=== PATIENT | female | born 1960 | race African-American/Black ===

== ENCOUNTER 2020-10-16 08:00 | Emergency (ER) | payer BC, OTHER ==
[~2020-10-16] VITALS: Ht 167.6 cm; Wt 93.0 kg
[2020-10-16 08:06] VITALS: BP 156/81
[2020-10-16] MEDS ORDERED: ACETAMINOPHEN 325MG TABLET PO ONE (08:30)
[2020-10-16 10:18] LABS: CHLORIDE 106 mEq/L (98-107)
[2020-10-16 10:24] LABS: BASOPHILS % 0.8 % (0.0-2.0); EOSINOPHILS % 1.3 % (0.0-5.0); HEMATOCRIT. 33.7 % (36.0-48.0); LYMPHOCYTES % 17.9 % (20.0-50.0); MEAN CORPUSCULAR HEMOGLOBIN 24.3 pg (28.0-32.0); MEAN CORPUSCULAR VOLUME 74.2 fL (81.0-99.0); MEAN PLATELET VOLUME 7.4 fl (7.4-10.4); PLATELET 549 x1000/uL (130-400); RED BLOOD CELL COUNT 4.54 mill/uL (4.2-5.4); RED CELL DISTRIBUTION WIDTH 14.7 % (11.6-14.6)
== END 2020-10-16 10:43 | disposition home or self-care (01) ==
LOC: ER 08:00
DX: M79.89 Other specified soft tissue disorders (principal); R03.0 Elevated blood-pressure reading, without diagnosis of hypertension; Z86.19 Personal history of other infectious and parasitic diseases
CPT/HCPCS: 36415; 71045; 80053; 85025; 93971; 99285